=== PATIENT | male | born 1965 | race Caucasian/White ===

== ENCOUNTER 2017-10-22 12:02 | Emergency (ER) | payer OTHER ==
[2017-10-22] MEDS ORDERED: Aspirin 81 MG Tab.Chew PO ONE (12:10)
--- NOTE | 2017-10-22 12:36 | EDM.PDOC ---
ED HPI GENERAL MEDICAL PROBLEM - General Stated Complaint: FROM CLINIC, CHEST PAIN Time Seen by Provider: 10/22/17 12:20 Source of Information: Reports: Patient History Limitations: Reports: No Limitations - History of Present Illness INITIAL COMMENTS - FREE TEXT/NARRATIVE: This 52 yo male patient was sent to the ED by Easton Kurtz ([facility]) due to a 1 hour history of chest pain this morning, a fever of unknown origin, an elevated troponin level (0.08 with their upper limit of normal being 0.07) and a fib on the monitor (change from previous EKG). The patient reports he has been experiencing intermittent episodes of fevers and headaches since Wednesday of this week. While at the clinic, the patient had an EKG, CBC, CMP, Troponin, Influenza (-), and Monospot (-). The patient reports that he already has a defibrillator/pacemaker in place with a history of paroxysmal a. fib. The patient reports that he normally sees Dr. Momin with another appointment scheduled for November 02. The patient reports that he had chest pain this morning that lasted for about 1 hour prior to coming to the clinic. The patient denies any chest pain at the time of examination. The patient reports that he has a headache and a sore throat. Onset: Today (chest pain), Gradual (headaches, intermittent fevers) Location: Reports: Head, Chest Quality: Reports: Other Severity: Moderate Improves with: Reports: None Worsens with: Reports: None Associated Symptoms: Reports: Chest Pain, Fever/Chills, Headaches Headache Pain Score (Numeric/FACES): 9 - Related Data Allergies Allergy/AdvReac Type Severity Reaction Status Date / Time No Known Allergies Allergy Verified 08/14/13 19:52 Home Meds: Home Meds Furosemide [Lasix] 60 mg PO DAILY 08/14/13 [History] Losartan [Cozaar] 25 mg PO DAILY 08/14/13 [History] Metoprolol Succinate 50 mg PO 08/14/13 [History] Nitroglycerin [Nitrostat] 0.4 mg SL PRN 08/14/13 [History] Potassium Chloride [Potassium Chloride Solution] 20 meq PO DAILY 08/14/13 [ History] Albuterol [Proventil HFA] 10/22/17 [History] Omeprazole Magnesium [Prilosec Otc] 20 mg PO DAILY 10/22/17 [History] Warfarin [Coumadin] 5 mg PO DAILY 10/22/17 [History] Social & Family History - Tobacco Use Years of Tobacco use: 13 Used Tobacco, but Quit: Yes Month/Year Tobacco Last Used: september Second Hand Smoke Exposure: No - Alcohol Use Days Per Week of Alcohol Use: 0 Number of Drinks Per Day: 0 Total Drinks Per Week: 0 - Recreational Drug Use Recreational Drug Use: No ED ROS GENERAL - Review of Systems Review Of Systems: ROS reveals no pertinent complaints other than HPI. ED EXAM, GENERAL - Physical Exam Exam: See Below Exam Limited By: No Limitations General Appearance: Alert, WD/WN, Mild Distress Eye Exam: Bilateral Eye: EOMI, Normal Inspection, PERRL Ears: Normal External Exam, Normal Canal, Hearing Grossly Normal, Normal TMs Nose: Normal Inspection, Normal Mucosa, No Blood Throat/Mouth: Normal Inspection, Normal Lips, Normal Teeth, Normal Gums, Normal Oropharynx, Normal Voice, No Airway Compromise Head: Atraumatic, Normocephalic Neck: Normal Inspection, Supple, Non-Tender, Full Range of Motion Respiratory/Chest: No Respiratory Distress, Lungs Clear, Normal Breath Sounds, No Accessory Muscle Use, Chest Non-Tender Cardiovascular: Tachycardia, Irregularly Irregular GI/Abdominal: Normal Bowel Sounds, Soft, Non-Tender, No Organomegaly, No Distention, No Abnormal Bruit, No Mass (Male) Exam: Deferred Rectal (Males) Exam: Deferred Back Exam: Normal Inspection, Full Range of Motion, NT Extremities: Normal Range of Motion, Non-Tender, Normal Capillary Refill, Pedal Edema (mild bilateral (2+)) Neurological: Alert, Oriented, CN II-XII Intact, Normal Cognition, Normal Gait, Normal Reflexes, No Motor/Sensory Deficits Psychiatric: Normal Affect, Normal Mood Skin Exam: Warm, Dry, Intact, Normal Color, No Rash Lymphatic: No Adenopathy EKG INTERPRETATION EKG Date: 10/22/17 Time: 12:09 Rhythm: A-Fib [place]: Normal P-Wave: Present QRS: Normal ST-T: Normal QT: Normal Comparison: Change From Previous EKG Course - Vital Signs Last Recorded V/S: Last Vital Signs Temp 37.8 C 10/22/17 12:26 Pulse 113 H 10/22/17 12:26 Resp 16 10/22/17 12:26 BP 110/72 10/22/17 12:26 Pulse Ox 94 L 10/22/17 12:26 - Orders/Labs/Meds Orders: Active Orders 24 hr Category Date Time Status EKG Documentation Completion [RC] URGENT Care 10/22/17 12:10 Ordered Chest 1V Frontal [CR] Urgent Exams 10/22/17 12:11 Ordered CULTURE STREP A CONFIRMATION [] Stat Lab 10/22/17 12:17 Results STREP SCRN A RAPID W CULT CONF [] Stat Lab 10/22/17 12:23 Ordered Heparin Sodium/0.45% NaCl [Heparin 25,000 Units in 1/2 Med 10/22/17 13:45 Ordered NS 500 ML] 25,000 units in 500 ml IV ASDIRECTED Medication Orders Heparin Sodium/Sodium Chloride (Heparin 25,000 Units In 1/2 Ns 500 Ml) 25,000 units in 500 mls @ 24.385 mls/hr IV ASDIRECTED [facility] Labs: Laboratory Tests 10/22/17 10/22/17 Range/Units 12:18 12:18 PT 13.7 H D (9.0-12.0) SEC INR 1.4 H (0.9-1.2) Troponin I 0.07 H* (0.00-0.02) ng/ml B-Natriuretic Peptide 252 H (0-100) pg/ml Meds: Medications Generic Name Dose Route Start Last Admin Trade Name Freq PRN Reason Stop Dose Admin Heparin Sodium/Sodium Chloride 25,000 units in 500 mls @ 24.385 mls/hr 13:45 Heparin 25,000 Units In 1/2 Ns 500 Ml IV ASDIRECTED SUNITA 12 UNITS/KG/HR Discontinued Medications Generic Name Dose Route Start Last Admin Trade Name Freq PRN Reason Stop Dose Admin Aspirin 324 mg 10/22/17 12:10 10/22/17 12:31 Aspirin PO 10/22/17 12:11 324 mg ONETIME ONE Administration Heparin Sodium (Porcine) 4,000 units 10/22/17 13:32 Heparin Sodium IVPUSH 10/22/17 13:33 .BOLUS ONE Departure - Departure Time of Disposition: 13:37 Disposition: DC/Tfer to Acute Hospital 02 Reason for Transfer *Q: Other Condition: Fair Clinical Impression: NSTEMI (non-ST elevated myocardial infarction) Forms: Interfacility Transfer EMTALA Care Plan Goals: Discussed the patient's history, examination, lab, EKG and x-ray results with Dr. Prince (Hospitalist with [facility] in [place]). Dr. Prince accepted the patient for continued evaluation and management at [facility] in [place]. The patient will be transported by [facility]. - My Orders Last 24 Hours: My Active Orders 10/22/17 12:10 EKG Documentation Completion [RC] URGENT 10/22/17 12:11 Chest 1V Frontal [CR] Urgent 10/22/17 12:17 CULTURE STREP A CONFIRMATION [RM] Stat 10/22/17 12:23 STREP SCRN A RAPID W CULT CONF [RM] Stat 10/22/17 13:45 Heparin Sodium/0.45% NaCl [Heparin 25,000 Units in 1/2 NS 500 ML] 25,000 units in 500 ml IV ASDIRECTED - Assessment/Plan Last 24 Hours: My Active Orders 10/22/17 12:10 EKG Documentation Completion [RC] URGENT 10/22/17 12:11 Chest 1V Frontal [CR] Urgent 10/22/17 12:17 CULTURE STREP A CONFIRMATION [RM] Stat 10/22/17 12:23 STREP SCRN A RAPID W CULT CONF [RM] Stat 10/22/17 13:45 Heparin Sodium/0.45% NaCl [Heparin 25,000 Units in 1/2 NS 500 ML] 25,000 units in 500 ml IV ASDIRECTED
[2017-10-22] MEDS ORDERED: Heparin Sodium 5,000 Units/ML Vial IVPUSH ONE (13:32)
[2017-10-22] MEDS ORDERED: Heparin Sodium/0.45% NaCl 25,000 UNITS/500 ML BAG IV SCH (13:45)
--- NOTE | 2017-10-25 10:02 | EKG ---
10/22/2017- JOSE RAMON SORIANO - EKG, per my reading, shows atrial flutter at a rate of one teens. [facility] /[id number]
== END 2017-10-22 15:00 ==
LOC: DL.ED 12:02
DX: I21.4 Non-ST elevation (NSTEMI) myocardial infarction (principal); Z79.899 Other long term (current) drug therapy; Z87.891 Personal history of nicotine dependence
CPT/HCPCS: 36415; 71045; 83880; 84484; 85610; 87081; 87430; 93005; 96365; 96376; 99285; A9270; J1644

== ENCOUNTER 2018-03-05 16:20 | Emergency (ER) | payer OTHER ==
--- NOTE | 2018-03-05 17:50 | EDM.PDOC ---
Scribed by Deepti Linder 03/05/18 1722 for Farhad Shnaks MD ED HPI GENERAL MEDICAL PROBLEM - General Chief Complaint: Cardiovascular Problem Stated Complaint: HEART ? [id number] Time Seen by Provider: 03/05/18 16:23 Source of Information: Reports: Patient, RN, RN Notes Reviewed History Limitations: Reports: No Limitations - History of Present Illness INITIAL COMMENTS - FREE TEXT/NARRATIVE: Pt c/o pacemaker began "beeping" last evening at approx. 1900HRS. Pt denies palpitations, pain, syncope, or shortness of breath. Pt states he feels completely well and normal. Onset: Sudden Duration: Recurring Location: Reports: Chest Quality: Reports: Other (denies pain) Improves with: Reports: None Worsens with: Reports: None Associated Symptoms: Reports: No Other Symptoms - Related Data Allergies Allergy/AdvReac Type Severity Reaction Status Date / Time No Known Allergies Allergy Verified 03/05/18 17:07 Home Meds: Home Meds Furosemide [Lasix] 60 mg PO DAILY 08/14/13 [History] Losartan [Cozaar] 25 mg PO DAILY 08/14/13 [History] Metoprolol Succinate 50 mg PO DAILY 08/14/13 [History] Nitroglycerin [Nitrostat] 0.4 mg SL PRN 08/14/13 [History] Potassium Chloride [Potassium Chloride Solution] 20 meq PO DAILY 08/14/13 [ History] Albuterol [Proventil HFA] 10/22/17 [History] Omeprazole Magnesium [Prilosec Otc] 20 mg PO DAILY 10/22/17 [History] Warfarin [Coumadin] 7.5 mg PO DAILY 10/22/17 [History] Warfarin Sodium [Jantoven] 03/05/18 [History] Past Medical History HEENT History: Reports: Impaired Vision Cardiovascular History: Reports: Automatic Implantable Cardioverter Defibrillators, CAD, Cardiomyopathy, High Cholesterol, Hypertension, Pacemaker Respiratory History: Reports: Other (See Below) Other Respiratory History: pulmonary nodules Gastrointestinal History: Reports: GERD - Past Surgical History Cardiovascular Surgical History: Reports: AICD, Pacer GI Surgical History: Reports: Bariatric Procedure Musculoskeletal Surgical History: Reports: Arthroscopic Knee Social & Family History - Family History Family Medical History: Noncontributory - Caffeine Use Caffeine Use: Reports: Soda - Living Situation & Occupation Living situation: Reports: with Family Occupation: Employed ED ROS GENERAL - Review of Systems Review Of Systems: ROS reveals no pertinent complaints other than HPI. ED EXAM, GENERAL - Physical Exam Exam: See Below Exam Limited By: No Limitations General Appearance: Alert, WD/WN, No Apparent Distress, Obese Throat/Mouth: Normal Inspection, Normal Voice, No Airway Compromise Head: Atraumatic, Normocephalic Neck: Normal Inspection Respiratory/Chest: No Respiratory Distress, Lungs Clear, Normal Breath Sounds, No Accessory Muscle Use, Chest Non-Tender Cardiovascular: Regular Rate, Rhythm, No Edema GI/Abdominal: Soft, Non-Tender Back Exam: Normal Inspection Extremities: Normal Inspection, Non-Tender, No Pedal Edema Neurological: Alert, Oriented, No Motor/Sensory Deficits Psychiatric: Normal Mood Skin Exam: Warm, Dry, Intact, Normal Color, No Rash EKG INTERPRETATION EKG Date: 03/05/18 Time: 16:27 Rhythm: Other (paced.) Rate (Beats/Min): 68 EKG Interpretation Comments: Paced: No further interpretation. Course - Vital Signs Last Recorded V/S: Last Vital Signs Temp 36.8 C 03/05/18 16:36 Pulse 71 03/05/18 16:36 Resp 20 03/05/18 16:36 BP 127/72 03/05/18 16:36 Pulse Ox 96 03/05/18 16:36 - Orders/Labs/Meds Orders: Active Orders 24 hr Category Date Time Status EKG 12 Lead [EKG Documentation Completion] [RC] STAT Care 03/05/18 17:27 Active - Re-Assessments/Exams Free Text/Narrative Re-Assessment/Exam: 03/05/18 17:48 [employer] pacer interogated with phone call and faxed report from [employer] [facility] that the pace is functioning normally, and is beeping due to recognition of a T wave. Pt may be d/c'd home and f/u with cardiology on Mar.08. Departure - Departure Time of Disposition: 17:15 Disposition: Home, Self-Care 01 Condition: Good, Undetermined Clinical Impression: Normally functioning cardiac pacemaker present Disorder of cardiac pacemaker system Qualifiers: Encounter type: initial encounter Qualified Code(s): T82.9XXA - Unspecified complication of cardiac and vascular prosthetic device, implant and graft, initial encounter Instructions: Pacemaker Implantation, Adult, Care After Forms: ED Department Discharge Additional Instructions: Follow up with your cream hauler on Mar.08. Return to ER if any further concerns. - My Orders Last 24 Hours: My Active Orders 03/05/18 17:27 EKG 12 Lead [EKG Documentation Completion] [RC] STAT - Assessment/Plan Last 24 Hours: My Active Orders 03/05/18 17:27 EKG 12 Lead [EKG Documentation Completion] [RC] STAT I have read and agree with the documentation that has been completed regarding this visit. By signing this record, I attest that the documentation was completed in my physical presence and is an accurate record of the encounter.
== END 2018-03-05 17:51 | disposition home or self-care (01) ==
LOC: DL.ED 16:20
DX: T82.9XXA Unspecified complication of cardiac and vascular prosthetic device, implant and graft, initial encounter (principal); I10 Essential (primary) hypertension; Z79.899 Other long term (current) drug therapy; Z79.01 Long term (current) use of anticoagulants
CPT/HCPCS: 93005; 99284

== ENCOUNTER 2018-03-21 12:45 | Inpatient (IN) | payer OTHER ==
[2018-03-21] MEDS ORDERED: Ondansetron 4 MG/2 ML SDV IVPUSH PRN (13:13)
--- NOTE | 2018-03-21 13:41 | PCM.HP ---
H&P History of Present Illness - General Date of Service: 03/21/18 Admit Problem/Dx: Admission Diagnosis/Problem Admission Diagnosis/Problem Pancreatitis Source of Information: Patient History Limitations: Reports: No Limitations - History of Present Illness Initial Comments - Free Text/Narative: Qamar Lobato is a 52 y/o M with PMH of nonischemic cardiomyopathy, CAD, AFib w AICD/PCM and HTN. Patient is a transfer from [facility] because of pancreatitis. patient reports he has been having abdominal pain, associated with diarrhea, subjective fever and chills for the past 6 days. He notes nausea with dry heave. abdominal pain is defused but more epigastric, non-radiating, about 5/10 in intensity. He reports stool was loose and had about 4 bowel movement yesterday. He however said diarrhea is improving and that stool is now forming. He was seen in clinic today and labs revealed; Lipase elevated at 2047 , amylase 150, K 3.2, bottom saw operator 1.7. Hopsitalist service was consulted for hospitalization and further management. Patient at this time has no nausea, vomiting, fever, chills. No chest ain, SOB, palpation. No melena, hematochezia, hematemesis. Patient says he drinks alcohol occasionally and his last drink was 7 days ago. Onset of Symptoms: Reports: Gradual Duration of Symptoms: Reports: Day(s): Location: Reports: Abdomen Quality: Reports: Sharp Severity: Moderate Improves with: Reports: None Worsens with: Reports: Eating Associated Symptoms: Reports: Fever/Chills, Nausea/Vomiting, Weakness - Related Data Allergies/Adverse Reactions: Allergies Allergy/AdvReac Type Severity Reaction Status Date / Time No Known Allergies Allergy Verified 03/05/18 17:07 Home Medications: Home Meds Furosemide [Lasix] 60 mg PO DAILY 08/14/13 [History] Losartan [Cozaar] 25 mg PO DAILY 08/14/13 [History] Metoprolol Succinate 50 mg PO DAILY 08/14/13 [History] Nitroglycerin [Nitrostat] 0.4 mg SL PRN 08/14/13 [History] Albuterol [Proventil HFA] 10/22/17 [History] Omeprazole Magnesium [Prilosec Otc] 20 mg PO DAILY 10/22/17 [History] Warfarin [Coumadin] 7.5 mg PO DAILY 10/22/17 [History] Acetaminophen 1,000 mg PO Q6H PRN 03/21/18 [History] Potassium Chloride 20 meq PO DAILY 03/21/18 [History] atorvaSTATin [Lipitor] 20 mg PO DAILY 03/21/18 [History] Past Medical History HEENT History: Reports: Impaired Vision Cardiovascular History: Reports: Automatic Implantable Cardioverter Defibrillators, CAD, Cardiomyopathy, High Cholesterol, Hypertension, Pacemaker Respiratory History: Reports: Other (See Below) Other Respiratory History: pulmonary nodules Gastrointestinal History: Reports: GERD - Past Surgical History Cardiovascular Surgical History: Reports: AICD, Pacer GI Surgical History: Reports: Bariatric Procedure Musculoskeletal Surgical History: Reports: Arthroscopic Knee Social & Family History - Family History Family Medical History: Noncontributory - Caffeine Use Caffeine Use: Reports: Soda - Living Situation & Occupation Living situation: Reports: with Family Occupation: Employed H&P Review of Systems - Review of Systems: Review Of Systems: See Below General: Reports: No Symptoms, Chills, Fatigue, Decreased Appetite HEENT: Reports: No Symptoms Pulmonary: Reports: No Symptoms Cardiovascular: Reports: No Symptoms Gastrointestinal: Reports: Diarrhea, Nausea Genitourinary: Reports: No Symptoms Musculoskeletal: Reports: No Symptoms Skin: Reports: No Symptoms Psychiatric: Reports: No Symptoms Neurological: Reports: No Symptoms Hematologic/Lymphatic: Reports: No Symptoms Immunologic: Reports: No Symptoms Exam - Exam Exam: See Below - Exam Quality Assessment: DVT Prophylaxis General: Alert HEENT: PERRLA, Hearing Intact, Mucosa Moist & [place], Nares Patent, Normal Nasal Septum, Posterior Pharynx Clear, Conjunctiva Clear, EOMI, EACs Clear, TMs Clear Neck: Supple, Trachea Midline, 2 Lungs: Clear to Auscultation, Normal Respiratory Effort Cardiovascular: Regular Rate, Regular Rhythm GI/Abdominal Exam: Normal Bowel Sounds, Soft, Non-Tender, No Organomegaly, No Distention, No Abnormal Bruit, No Mass, Pelvis Stable (Male) Exam: Deferred Rectal (Males) Exam: Deferred Back Exam: Normal Inspection, Full Range of Motion, NT Extremities: Normal Inspection, Normal Range of Motion, Non-Tender, No Pedal Edema, Normal Capillary Refill Skin: Warm, Dry, Intact Neurological: Cranial Nerves Intact, Reflexes Equal Bilateral Neuro Extensive - Mental Status: Alert, Oriented x3, Normal Mood/Affect, Normal Cognition Neuro Extensive - Motor, Sensory, Reflexes: CN II-XII Intact, Normal Gait, Normal Reflexes Psychiatric: Alert, Normal Affect, Normal Mood - Problem List (1) Acute pancreatitis SNOMED Code(s): 506975752 ICD Code: K85.90 - ACUTE PANCREATITIS WITHOUT NECROSIS OR INFECTION, UNSP Status: Acute Current Visit: Yes (2) Hypokalemia SNOMED Code(s): 50479077 ICD Code: E87.6 - HYPOKALEMIA Status: Acute Current Visit: Yes (3) LOBO (acute kidney injury) SNOMED Code(s): 69718525 ICD Code: N17.9 - ACUTE KIDNEY FAILURE, UNSPECIFIED Status: Acute Current Visit: Yes (4) Diarrhea SNOMED Code(s): 92755046 ICD Code: R19.7 - DIARRHEA, UNSPECIFIED Status: Acute Current Visit: Yes Problem List Initiated/Reviewed/Updated: Yes Orders Last 24hrs: Active Orders 24 hr Category Date Time Status Patient Status [ADT] Routine ADT 03/21/18 13:13 Active Ambulate [RC] ASDIRECTED Care 03/21/18 13:13 Active Intake and Output [RC] QSHIFT Care 03/21/18 13:14 Active Oxygen Therapy [RC] PRN Care 03/21/18 13:13 Active VTE/DVT Education [RC] PER UNIT ROUTINE Care 03/21/18 13:13 Active Vital Signs [RC] Q4H Care 03/21/18 13:13 Active Heart Healthy Diet [DIET] Diet 03/21/18 Dinner Active BASIC METABOLIC PANEL,BMP [CHEM] DAILY Lab 03/22/18 07:00 Ordered CBC W/O DIFF,HEMOGRAM [HEME] DAILY Lab 03/22/18 07:00 Ordered MAGNESIUM [CHEM] Stat Lab 03/21/18 13:13 Ordered PHOSPHORUS [CHEM] Stat Lab 03/21/18 13:13 Ordered Acetaminophen [Tylenol] Med 03/21/18 13:13 Ordered 650 mg PO Q4H PRN Heparin Sodium Med 03/21/18 18:00 Ordered 5,000 units SUBCUT Q12H Ondansetron [Zofran] Med 03/21/18 13:13 Ordered 4 mg IVPUSH Q6H PRN Sodium Chloride 0.9% [Normal Saline] 1,000 ml Med 03/21/18 13:15 Ordered IV ASDIRECTED Resuscitation Status Routine Resus Stat 03/21/18 13:13 Ordered Medication Orders Acetaminophen (Tylenol) 650 mg PO Q4H PRN PRN Reason: Pain (Mild 1-3)/fever Heparin Sodium (Porcine) (Heparin Sodium) 5,000 units SUBCUT Q12H SUNITA Sodium Chloride (Normal Saline) 1,000 mls @ 125 mls/hr IV ASDIRECTED SUNITA Ondansetron HCl (Zofran) 4 mg IVPUSH Q6H PRN PRN Reason: Nausea/Vomiting Assessment/Plan Comment:: Acute pancreatitis admit to inpatient status IVF NPO. Stat patient on clear liquid diet and advance as tolerated Tylenol for pain control Lipase in the AM LOBO likely pre-renal azotemia due to diarrhea IVF BMP q8h avoid all nephrotoxics Hypokalemia will replete IV Diarrhea Resolving as per patient monitor closely Nonischemic cardiomyopathy stable continue home medications CAD stable continue home meds AFib w AICD/PCM stable HTN Continue home medication monitor BP closely Full code
[2018-03-21] MEDS ORDERED: Potassium Chloride 20 MEQ in Premix Bag 1 BAG IV ONE (13:49)
[2018-03-21] MEDS: Sodium Chloride 0.9% 1,000 ML IV SCH ×2 (13:51→21:48)
[2018-03-21] MEDS ORDERED: Nitroglycerin 0.4 MG Tab.SL SL PRN (13:55)
[2018-03-21] MEDS ORDERED: Albuterol 6.7 GM Inhaler INH PRN (13:55)
[2018-03-21 14:09] LABS: ANION GAP 16.1
[2018-03-21] MEDS ORDERED: Heparin Sodium 5,000 Units/ML Vial SUBCUT SCH (21:00)
[2018-03-22] MEDS: Omeprazole 20 MG Cap.CR PO SCH (05:53)
[2018-03-22] MEDS: Sodium Chloride 0.9% 1,000 ML IV SCH ×3 (05:53→22:36)
[2018-03-22 06:54] LABS: ANION GAP 10.9; CHLORIDE,CL 102 mmol/L (101-111); SODIUM,NA 132 mmol/L (135-145)
[2018-03-22] MEDS: Acetaminophen 325 MG Tab PO PRN ×2 (07:50→22:33)
[2018-03-22] MEDS: Metoprolol Succinate 50 MG Tab.ER PO SCH (07:59)
[2018-03-22] MEDS: Potassium Chloride 10 MEQ Tab.ER PO SCH (07:59)
[2018-03-22] MEDS: atorvaSTATin 20 MG Tab PO SCH (08:00)
[2018-03-22] MEDS: Potassium Chloride 20 MEQ in Premix Bag 1 BAG IV SCH ×2 (10:49→13:28)
--- NOTE | 2018-03-22 11:43 | PCM.PN ---
- General Info Date of Service: 03/22/18 Admission Dx/Problem (Free Text): Admission Diagnosis/Problem Admission Diagnosis/Problem Pancreatitis Subjective Update: Qamar Lobato is a 52 y/o M with PMH of nonischemic cardiomyopathy, CAD, AFib w AICD/PCM and HTN. Patient was transfer from [facility] because of pancreatitis. Patient presented with abdominal pain and was found to have elevated lipase at >2000. He was admitted and started on IVF. Patient was seen and examined this morning. He has no acute complaint. Abdominal pain has improved. He has no N/V. He is tolerating CLD. He denies fever/chills. Lipase this morning has trended down to <300. He still note diarrhea. Has 3 loose bowel movement yesterday. Stool is watery, greenish, mucoid, no blood. Functional Status: Reports: Pain Controlled - Review of Systems General: Reports: No Symptoms HEENT: Reports: No Symptoms Pulmonary: Reports: No Symptoms Cardiovascular: Reports: No Symptoms Gastrointestinal: Reports: No Symptoms Genitourinary: Reports: No Symptoms Musculoskeletal: Reports: No Symptoms Skin: Reports: No Symptoms Neurological: Reports: No Symptoms Psychiatric: Reports: No Symptoms - Patient Data Vitals - Most Recent: Last Vital Signs Temp 97.5 F 03/22/18 11:12 Pulse 54 L 03/22/18 11:12 Resp 20 03/22/18 11:12 BP 107/67 03/22/18 11:12 Pulse Ox 97 03/22/18 11:12 Weight - Most Recent: 210 lb 12.8 oz I&O - Last 24 Hours: Intake & Output 03/21/18 03/22/18 03/22/18 22:59 06:59 14:59 Intake Total 3148 1252 Output Total 300 200 Balance 2848 1052 Lab Results Last 24 Hours: Laboratory Results - last 24 hr 03/21/18 03/21/18 03/21/18 Range/Units 13:31 13:31 13:31 WBC 6.3 (5.0-10.0) 10^3/uL RBC 4.70 (4.6-6.2) 10^6/uL Hgb 13.2 L (14.0-18.0) g/dL Hct 38.7 L (40.0-54.0) % MCV 82.3 (80-100) fL MCH 28.1 (27.0-34.0) pg MCHC 34.1 (33.0-35.0) g/dL Plt Count 200 D (150-450) 10^3/uL Sodium 134 L (135-145) mmol/L Potassium 3.1 L (3.6-5.0) mmol/L Chloride 99 L (101-111) mmol/L Carbon Dioxide 22.0 (21.0-31.0) mmol/L Anion Gap 16.1 BUN 20 H (7-18) mg/dL Creatinine 1.6 H (0.6-1.3) mg/dL Est Cr Clr Drug Dosing 52.25 mL/min Estimated GFR (MDRD) 46 Glucose 102 (74-105) mg/dL Calcium 8.8 (8.4-10.2) mg/dl Phosphorus 4.3 (2.5-4.6) mg/dL Magnesium 1.9 (1.8-2.5) mg/dL Lipase (22-51) U/L 03/22/18 03/22/18 03/22/18 Range/Units 06:10 06:10 06:10 WBC 5.7 (5.0-10.0) 10^3/uL RBC 4.00 L (4.6-6.2) 10^6/uL Hgb 11.2 L D (14.0-18.0) g/dL Hct 33.6 L (40.0-54.0) % MCV 84.0 (80-100) fL MCH 28.0 (27.0-34.0) pg MCHC 33.3 (33.0-35.0) g/dL Plt Count 167 (150-450) 10^3/uL Sodium 132 L (135-145) mmol/L Potassium 2.9 L (3.6-5.0) mmol/L Chloride 102 (101-111) mmol/L Carbon Dioxide 22.0 (21.0-31.0) mmol/L Anion Gap 10.9 BUN 13 (7-18) mg/dL Creatinine 0.9 (0.6-1.3) mg/dL Est Cr Clr Drug Dosing 92.89 mL/min Estimated GFR (MDRD) > 60 Glucose 86 (74-105) mg/dL Calcium 7.9 L (8.4-10.2) mg/dl Phosphorus (2.5-4.6) mg/dL Magnesium (1.8-2.5) mg/dL Lipase 213 H (22-51) U/L Med Orders - Current: Current Medications Acetaminophen (Tylenol) 650 mg PO Q4H PRN PRN Reason: Pain (Mild 1-3)/fever Last Admin: 03/22/18 07:50 Dose: 650 mg Albuterol (Proventil Hfa) 0 gm INH Q6H PRN PRN Reason: Wheezing Atorvastatin Calcium (Lipitor) 20 mg PO DAILY [facility] Last Admin: 03/22/18 08:00 Dose: 20 mg Sodium Chloride (Normal Saline) 1,000 mls @ 125 mls/hr IV ASDIRECTED [facility] Last Admin: 03/22/18 05:53 Dose: 125 mls/hr Potassium Chloride 20 meq/ (Premix) 100 mls @ 50 mls/hr IV Q2H [facility] Stop: 03/22/18 13:59 Last Admin: 03/22/18 10:49 Dose: 50 mls/hr Metoprolol Succinate (Toprol Xl) 50 mg PO DAILY [facility] Last Admin: 03/22/18 07:59 Dose: 50 mg Nitroglycerin (Nitrostat) 0.4 mg SL ASDIRECTED PRN PRN Reason: Chest Pain Omeprazole (Omeprazole) 20 mg PO ACBRK [facility] Last Admin: 03/22/18 05:53 Dose: 20 mg Ondansetron HCl (Zofran) 4 mg IVPUSH Q6H PRN PRN Reason: Nausea/Vomiting Potassium Chloride (Klor-Con 10) 20 meq PO DAILY [facility] Last Admin: 03/22/18 07:59 Dose: 20 meq Warfarin Sodium (Pharmacy To Dose - Warfarin) 1 dose .XX ASDIRECTED [facility] Warfarin Sodium (Coumadin) 7.5 mg PO ONETIME ONE Stop: 03/22/18 14:01 Discontinued Medications Heparin Sodium (Porcine) (Heparin Sodium) 5,000 units SUBCUT Q12HR [facility] Potassium Chloride 20 meq/ (Premix) 100 mls @ 50 mls/hr IV ONETIME ONE Stop: 03/21/18 15:48 Last Admin: 03/21/18 14:20 Dose: 50 mls/hr Warfarin Sodium (Coumadin) 7.5 mg PO DAILY@1400 [facility] - Exam Quality Assessment: DVT Prophylaxis General: Alert, Oriented HEENT: Pupils Equal, Pupils Reactive, EOMI, Mucous Membr. Moist/[place] Neck: Supple Lungs: Clear to Auscultation, Normal Respiratory Effort Cardiovascular: Regular Rate, Regular Rhythm GI/Abdominal Exam: Normal Bowel Sounds, Soft, Non-Tender, No Organomegaly, No Distention, No Abnormal Bruit, No Mass, Pelvis Stable (Male) Exam: No Hernia, Normal Inspection, Normal Prostate, Circumcised Back Exam: Normal Inspection, Full Range of Motion Extremities: Normal Inspection, Normal Range of Motion, Non-Tender, No Pedal Edema, Normal Capillary Refill Skin: Warm, Dry, Intact Wound/Incisions: Healing Well Neurological: No New Focal Deficit Psy/Mental Status: Alert, Normal Affect, Normal Mood - Problem List & Annotations (1) Acute pancreatitis SNOMED Code(s): 704107348 Code(s): K85.90 - ACUTE PANCREATITIS WITHOUT NECROSIS OR INFECTION, UNSP Status: Acute Current Visit: Yes (2) Hypokalemia SNOMED Code(s): 98551456 Code(s): E87.6 - HYPOKALEMIA Status: Acute Current Visit: Yes (3) LOBO (acute kidney injury) SNOMED Code(s): 66458632 Code(s): N17.9 - ACUTE KIDNEY FAILURE, UNSPECIFIED Status: Acute Current Visit: Yes (4) Diarrhea SNOMED Code(s): 83775092 Code(s): R19.7 - DIARRHEA, UNSPECIFIED Status: Acute Current Visit: Yes (5) Hyponatremia SNOMED Code(s): 16721103 Code(s): E87.1 - HYPO-OSMOLALITY AND HYPONATREMIA Status: Acute Current Visit: Yes - Problem List Review Problem List Initiated/Reviewed/Updated: Yes - My Orders Last 24 Hours: My Active Orders 03/21/18 13:13 Patient Status [ADT] Routine Ambulate [RC] ASDIRECTED Oxygen Therapy [RC] .PRN VTE/DVT Education [RC] 08,20 Vital Signs [RC] 00,04,08,12,16,20 Acetaminophen [Tylenol] 650 mg PO Q4H PRN Ondansetron [Zofran] 4 mg IVPUSH Q6H PRN Resuscitation Status Routine 03/21/18 13:14 Intake and Output [RC] QSHIFT 03/21/18 13:15 Sodium Chloride 0.9% [Normal Saline] 1,000 ml IV ASDIRECTED 03/21/18 13:55 Albuterol [Proventil HFA] 0 gm INH Q6H PRN Nitroglycerin [Nitrostat] 0.4 mg SL ASDIRECTED PRN 03/21/18 16:15 Warfarin Pharmacy to Dose [Pharmacy to Dose - Warfarin] 1 dose .XX ASDIRECTED 03/21/18 Dinner Clear Liquid Diet [DIET] 03/22/18 06:00 Omeprazole 20 mg PO ACBRK 03/22/18 09:00 Metoprolol Succinate [Toprol XL] 50 mg PO DAILY Potassium Chloride [Klor-Con 10] 20 meq PO DAILY atorvaSTATin [Lipitor] 20 mg PO DAILY 03/22/18 09:41 Telemetry Monitoring [Cardiac Monitoring] [RC] . DIRECTED 03/22/18 10:00 Potassium Chloride [KCL 20 MEQ in Water 100 ML] 20 meq Premix Bag 1 bag IV Q2H 03/22/18 11:32 C DIFFICILE TOXIN BY PCR [MREF] Routine CULTURE STOOL [RM] Routine 03/22/18 14:00 Warfarin [Coumadin] 7.5 mg PO ONETIME ONE 03/23/18 07:00 INR,PT,PROTHROMBIN TIME [COAG] DAILY 03/24/18 07:00 INR,PT,PROTHROMBIN TIME [COAG] DAILY 03/25/18 07:00 INR,PT,PROTHROMBIN TIME [COAG] DAILY - Plan Plan:: Acute pancreatitis Improved Lipase trending down Tylenol for pain control Advance diet as tolerated LOBO likely pre-renal azotemia due to diarrhea Resolved Hypokalemia unresolved Continue to replete IV Diarrhea will send for stool study IV flagyl 500 mg tid Nonischemic cardiomyopathy stable continue home medications CAD stable continue home meds AFib w AICD/PCM stable HTN Continue home medication monitor BP closely Full code
[2018-03-22] MEDS ORDERED: Warfarin 2.5 MG Tab PO SCH (14:00)
[2018-03-22] MEDS ORDERED: Warfarin 2.5 MG Tab PO ONE (14:00)
[2018-03-23] MEDS: Potassium Chloride 20 MEQ in Premix Bag 1 BAG IV SCH ×2 (00:47→02:41)
[2018-03-23] MEDS: Omeprazole 20 MG Cap.CR PO SCH (06:02)
[2018-03-23 06:48] LABS: ANION GAP 9.7; CHLORIDE,CL 108 mmol/L (101-111); SODIUM,NA 137 mmol/L (135-145)
[2018-03-23] MEDS: atorvaSTATin 20 MG Tab PO SCH (08:19)
[2018-03-23] MEDS: Potassium Chloride 10 MEQ Tab.ER PO SCH (08:20)
[2018-03-23] MEDS: Metoprolol Succinate 50 MG Tab.ER PO SCH (08:20)
--- NOTE | 2018-03-23 12:33 | PCM.DCSUM1 ---
Discharge Summary - Hospital Course HPI Initial Comments: Qamar Lobato is a 52 y/o M with PMH of nonischemic cardiomyopathy, CAD, AFib w AICD/PCM and HTN. Patient was transfer from [facility] because of pancreatitis. Patient presented with abdominal pain and was found to have elevated lipase at >2000. He was admitted and managed with IVF and analgesics. His symptoms improved. Abdominal pain has resolved, lipase has trended down. He is being discharge home. He wile follow with PCP. Diagnosis: Stroke: No - Discharge Data Discharge Date: 03/23/18 Discharge Disposition: Home, Self-Care 01 Condition: Good - Discharge Diagnosis/Problem(s) (1) Acute pancreatitis SNOMED Code(s): 188541751 ICD Code: K85.90 - ACUTE PANCREATITIS WITHOUT NECROSIS OR INFECTION, UNSP Status: Acute Current Visit: Yes (2) Hypokalemia SNOMED Code(s): 90440673 ICD Code: E87.6 - HYPOKALEMIA Status: Acute Current Visit: Yes (3) LOBO (acute kidney injury) SNOMED Code(s): 43111217 ICD Code: N17.9 - ACUTE KIDNEY FAILURE, UNSPECIFIED Status: Acute Current Visit: Yes (4) Diarrhea SNOMED Code(s): 97050197 ICD Code: R19.7 - DIARRHEA, UNSPECIFIED Status: Acute Current Visit: Yes (5) Hyponatremia SNOMED Code(s): 20797356 ICD Code: E87.1 - HYPO-OSMOLALITY AND HYPONATREMIA Status: Acute Current Visit: Yes - Patient Summary/Data Recommended Follow-up Testing/Procedures: With PCP in 7 days - Patient Instructions Diet: Heart Healthy Diet Activity: As Tolerated Driving: May Drive Today Showering/Bathing: May Shower Notify Provider of: Fever, Increased Pain, Nausea and/or Vomiting - Discharge Plan *PRESCRIPTION DRUG MONITORING PROGRAM REVIEWED*: Not Applicable Home Medications: Home Meds Furosemide [Lasix] 60 mg PO DAILY 08/14/13 [History] Losartan [Cozaar] 25 mg PO DAILY 08/14/13 [History] Metoprolol Succinate 50 mg PO DAILY 08/14/13 [History] Nitroglycerin [Nitrostat] 0.4 mg SL ASDIRECTED PRN 08/14/13 [History] Albuterol [Proventil HFA] 2 puff INH Q6H PRN 10/22/17 [History] Omeprazole Magnesium [Prilosec Otc] 20 mg PO DAILY 10/22/17 [History] Warfarin [Coumadin] 7.5 mg PO DAILY 10/22/17 [History] Acetaminophen 1,000 mg PO Q6H PRN 03/21/18 [History] Potassium Chloride 20 meq PO DAILY 03/21/18 [History] atorvaSTATin [Lipitor] 20 mg PO DAILY 03/21/18 [History] Patient Handouts: Acute Pancreatitis, [id number] - Discharge Summary/Plan Comment DC Time >30 min.: Yes - General Info Admission Dx/Problem (Free Text: Admission Diagnosis/Problem Admission Diagnosis/Problem Pancreatitis Subjective Update: Qamar Lobato is a 52 y/o M with PMH of nonischemic cardiomyopathy, CAD, AFib w AICD/PCM and HTN. Patient was transfer from [facility] because of pancreatitis. Patient presented with abdominal pain and was found to have elevated lipase at >2000. He was admitted and managed with IVF and analgesics. His symptoms improved. Abdominal pain has resolved, lipase has trended down. He is being discharge home. He wile follow with PCP. Functional Status: Reports: Pain Controlled - Review of Systems General: Reports: No Symptoms HEENT: Reports: No Symptoms Pulmonary: Reports: No Symptoms Cardiovascular: Reports: No Symptoms Gastrointestinal: Reports: No Symptoms Genitourinary: Reports: No Symptoms Musculoskeletal: Reports: No Symptoms Skin: Reports: No Symptoms Neurological: Reports: No Symptoms Psychiatric: Reports: No Symptoms - Patient Data Vitals - Most Recent: Last Vital Signs Temp 98 F 03/23/18 10:47 Pulse 124 H 03/23/18 10:47 Resp 20 03/23/18 10:47 BP 123/84 03/23/18 10:47 Pulse Ox 98 03/23/18 10:47 Weight - Most Recent: 223 lb 12.8 oz I&O - Last 24 hours: Intake & Output 03/22/18 03/23/18 03/23/18 22:59 06:59 14:59 Intake Total 0556 352 9508 Output Total 300 600 Balance 307 441 8365 Lab Results - Last 24 hrs: Laboratory Results - last 24 hr 03/22/18 03/23/18 03/23/18 Range/Units 23:35 06:10 06:10 PT 15.9 H (9.0-12.0) SEC INR 1.6 H (0.9-1.2) Sodium 137 (135-145) mmol/L Potassium 3.2 L 3.7 (3.6-5.0) mmol/L Chloride 108 (101-111) mmol/L Carbon Dioxide 23.0 (21.0-31.0) mmol/L Anion Gap 9.7 BUN 6 L (7-18) mg/dL Creatinine 0.7 (0.6-1.3) mg/dL Est Cr Clr Drug Dosing 119.43 mL/min Estimated GFR (MDRD) > 60 Glucose 96 (74-105) mg/dL Calcium 7.8 L (8.4-10.2) mg/dl Lipase 295 H (22-51) U/L SYEDA Results - Last 24 hrs: Microbiology 03/22/18 11:00 Shiga Toxin I & II - Final Stool / Feces 03/22/18 11:00 Clostridium difficile (PCR) - Final Stool / Feces 03/22/18 11:00 Stool Culture - Preliminary Stool / Feces NORMAL ENTERIC KADEN 1 DAY Med Orders - Current: Current Medications Acetaminophen (Tylenol) 650 mg PO Q4H PRN PRN Reason: Pain (Mild 1-3)/fever Last Admin: 03/22/18 22:33 Dose: 650 mg Albuterol (Proventil Hfa) 0 gm INH Q6H PRN PRN Reason: Wheezing Atorvastatin Calcium (Lipitor) 20 mg PO DAILY [facility] Last Admin: 03/23/18 08:19 Dose: 20 mg Sodium Chloride (Normal Saline) 1,000 mls @ 125 mls/hr IV ASDIRECTED [facility] Last Admin: 03/22/18 22:36 Dose: 125 mls/hr Metoprolol Succinate (Toprol Xl) 50 mg PO DAILY [facility] Last Admin: 03/23/18 08:20 Dose: 50 mg Nitroglycerin (Nitrostat) 0.4 mg SL ASDIRECTED PRN PRN Reason: Chest Pain Omeprazole (Omeprazole) 20 mg PO ACBRK [facility] Last Admin: 03/23/18 06:02 Dose: 20 mg Ondansetron HCl (Zofran) 4 mg IVPUSH Q6H PRN PRN Reason: Nausea/Vomiting Potassium Chloride (Klor-Con 10) 20 meq PO DAILY [facility] Last Admin: 03/23/18 08:20 Dose: 20 meq Warfarin Sodium (Pharmacy To Dose - Warfarin) 1 dose .XX ASDIRECTED [facility] Warfarin Sodium (Coumadin) 8 mg PO ONETIME ONE Stop: 03/23/18 14:01 Discontinued Medications Heparin Sodium (Porcine) (Heparin Sodium) 5,000 units SUBCUT Q12HR [facility] Potassium Chloride 20 meq/ (Premix) 100 mls @ 50 mls/hr IV ONETIME ONE Stop: 03/21/18 15:48 Last Admin: 03/21/18 14:20 Dose: 50 mls/hr Potassium Chloride 20 meq/ (Premix) 100 mls @ 50 mls/hr IV Q2H [facility] Stop: 03/22/18 13:59 Last Infusion: 03/22/18 16:22 Dose: Infused Potassium Chloride 20 meq/ (Premix) 100 mls @ 50 mls/hr IV Q2H [facility] Stop: 03/23/18 04:29 Last Admin: 03/23/18 02:41 Dose: 50 mls/hr Warfarin Sodium (Coumadin) 7.5 mg PO DAILY@1400 [facility] Warfarin Sodium (Coumadin) 7.5 mg PO ONETIME ONE Stop: 03/22/18 14:01 Last Admin: 03/22/18 13:01 Dose: 7.5 mg - Exam General: Reports: Alert, Oriented HEENT: Reports: Pupils Equal, Pupils Reactive, EOMI, Mucous Membr. Moist/[place] Neck: Reports: Supple Lungs: Reports: Clear to Auscultation, Normal Respiratory Effort Cardiovascular: Reports: Regular Rate, Regular Rhythm GI/Abdominal Exam: Normal Bowel Sounds, Soft, Non-Tender, No Organomegaly, No Distention, No Abnormal Bruit, No Mass, Pelvis Stable (Male) Exam: No Hernia, Normal Inspection, Normal Prostate, Circumcised Rectal (Males) Exam: Normal Exam, Normal Rectal Tone, Prostate Normal Back Exam: Reports: Normal Inspection, Full Range of Motion Extremities: Normal Inspection, Normal Range of Motion, Non-Tender, No Pedal Edema, Normal Capillary Refill Skin: Reports: Warm, Dry, Intact Wound/Incisions: Reports: Healing Well Neurological: Reports: No New Focal Deficit Psy/Mental Status: Reports: Alert, Normal Affect, Normal Mood
[2018-03-23] MEDS ORDERED: Warfarin 2 MG Tab PO ONE (14:00)
== END 2018-03-23 12:40 | disposition home or self-care (01) | DRG 439 ==
LOC: DL.MS 12:54 → UNDOADMIN 12:54 → DL.MS 13:13
PROVIDERS: ADMIT Student in an Organized Health Care Education/Training Program; ATTEND Student in an Organized Health Care Education/Training Program
DX: K85.90 Acute pancreatitis without necrosis or infection, unspecified (principal); I42.9 Cardiomyopathy, unspecified; N17.9 Acute kidney failure, unspecified; E87.1 Hypo-osmolality and hyponatremia; E87.6 Hypokalemia; I25.10 Atherosclerotic heart disease of native coronary artery without angina pectoris; I48.91 Unspecified atrial fibrillation; I10 Essential (primary) hypertension; R19.7 Diarrhea, unspecified; K21.9 Gastro-esophageal reflux disease without esophagitis; H54.7 Unspecified visual loss; E78.00 Pure hypercholesterolemia, unspecified; Z95.810 Presence of automatic (implantable) cardiac defibrillator; Z79.899 Other long term (current) drug therapy; Z79.01 Long term (current) use of anticoagulants; Z98.84 Bariatric surgery status
CPT/HCPCS: 36415; 80048; 83690; 83735; 84100; 84132; 85027; 85610; 87045; 87046; 87493; 87899; A9270-GY; J3480; J7030

== ENCOUNTER 2018-08-29 07:03 | Emergency (ER) | payer OTHER ==
--- NOTE | 2018-08-29 07:36 | EDM.PDOC ---
ED HPI GENERAL MEDICAL PROBLEM - General Stated Complaint: CHECK PACEMAKER Time Seen by Provider: 08/29/18 07:20 Source of Information: Reports: Patient History Limitations: Reports: No Limitations - History of Present Illness INITIAL COMMENTS - FREE TEXT/NARRATIVE: This 53 yo male patient reports to the ED due to his pacemaker "beeping" 3 times yesterday (1400, 1800 and 2000) and again this morning. The patient reports he has had some "acid reflux like pains" yesterday and a little "something" this morning (patient did not describe his symptoms this morning as pain or discomfort). The patient reports he was in [place] to see Dr. Momin on Wednesday. The patient reports they increased some of his blood pressure medications (DC of Lasix, added Bumex, increased Metoprolol and increased Losartan) during that appointment. The patient reports a similar episode last year for which he ended up getting his pacemaker and wires. The patient reports he is feeling pretty well at the time of the assessment. Duration: Day(s):, Intermittent Location: Reports: Chest Quality: Reports: Other Severity: Mild Improves with: Reports: None Worsens with: Reports: None Associated Symptoms: Reports: Chest Pain - Related Data Allergies Allergy/AdvReac Type Severity Reaction Status Date / Time No Known Allergies Allergy Verified 03/05/18 17:07 Home Meds: Home Meds Losartan [Cozaar] 12.5 mg PO DAILY 08/14/13 [History] Metoprolol Succinate 100 mg PO DAILY 08/14/13 [History] Nitroglycerin [Nitrostat] 0.4 mg SL ASDIRECTED PRN 08/14/13 [History] Albuterol [Proventil HFA] 2 puff INH Q6H PRN 10/22/17 [History] Omeprazole Magnesium [Prilosec Otc] 20 mg PO DAILY 10/22/17 [History] Warfarin [Coumadin] 7.5 mg PO DAILY 10/22/17 [History] Acetaminophen 1,000 mg PO Q6H PRN 03/21/18 [History] Potassium Chloride 20 meq PO DAILY 03/21/18 [History] atorvaSTATin [Lipitor] 20 mg PO DAILY 03/21/18 [History] Allopurinol [Zyloprim] 300 mg PO DAILY 08/29/18 [History] Bumetanide [Bumex] 1.5 mg PO BID 08/29/18 [History] Past Medical History HEENT History: Reports: Impaired Vision Cardiovascular History: Reports: Automatic Implantable Cardioverter Defibrillators, CAD, Cardiomyopathy, High Cholesterol, Hypertension, Pacemaker Respiratory History: Reports: Other (See Below) Other Respiratory History: pulmonary nodules Gastrointestinal History: Reports: GERD Musculoskeletal History: Reports: Arthritis Endocrine/Metabolic History: Reports: Obesity/BMI 30+ - Past Surgical History Cardiovascular Surgical History: Reports: AICD, Pacer GI Surgical History: Reports: Bariatric Procedure Musculoskeletal Surgical History: Reports: Arthroscopic Knee Social & Family History - Family History Family Medical History: Noncontributory - Caffeine Use Caffeine Use: Reports: Soda - Living Situation & Occupation Living situation: Reports: with Family Occupation: Employed ED ROS GENERAL - Review of Systems Review Of Systems: ROS reveals no pertinent complaints other than HPI. ED EXAM, GENERAL - Physical Exam Exam: See Below Exam Limited By: No Limitations General Appearance: Alert, WD/WN, Mild Distress Eye Exam: Bilateral Eye: EOMI, Normal Inspection, PERRL Ears: Normal External Exam, Normal Canal, Hearing Grossly Normal, Normal TMs Nose: Normal Inspection, Normal Mucosa, No Blood Throat/Mouth: Normal Inspection, Normal Lips, Normal Teeth, Normal Gums, Normal Oropharynx, Normal Voice, No Airway Compromise Head: Atraumatic, Normocephalic Neck: Normal Inspection, Supple, Non-Tender, Full Range of Motion Respiratory/Chest: No Respiratory Distress, Lungs Clear, Normal Breath Sounds, No Accessory Muscle Use, Chest Non-Tender Cardiovascular: Normal Peripheral Pulses, No Edema, No Gallop, No JVD, No Murmur , No Rub, Extra Beats GI/Abdominal: Normal Bowel Sounds (Male) Exam: Deferred Rectal (Males) Exam: Deferred Back Exam: Normal Inspection, Full Range of Motion, NT Extremities: Normal Inspection, Normal Range of Motion, Non-Tender, Normal Capillary Refill, No Pedal Edema Neurological: Alert, Oriented, CN II-XII Intact, Normal Cognition, Normal Gait, Normal Reflexes, No Motor/Sensory Deficits Psychiatric: Normal Affect, Normal Mood Skin Exam: Warm, Dry, Intact, Normal Color, No Rash Lymphatic: No Adenopathy Course - Vital Signs Last Recorded V/S: Last Vital Signs Temp 36.4 C 08/29/18 07:05 Pulse 115 H 08/29/18 07:05 Resp 20 08/29/18 07:05 BP 140/102 H 08/29/18 07:05 Pulse Ox 99 08/29/18 07:05 - Orders/Labs/Meds Orders: Active Orders 24 hr Category Date Time Status EKG Documentation Completion [RC] URGENT Care 08/29/18 07:15 Active Labs: Laboratory Tests 08/29/18 08/29/18 08/29/18 Range/Units 07:27 07:27 07:27 WBC 7.9 (5.0-10.0) 10^3/uL RBC 5.26 (4.6-6.2) 10^6/uL Hgb 13.9 L D (14.0-18.0) g/dL Hct 43.8 (40.0-54.0) % MCV 83.3 (80-100) fL MCH 26.4 L (27.0-34.0) pg MCHC 31.7 L (33.0-35.0) g/dL Plt Count 263 D (150-450) 10^3/uL Neut % (Auto) 56.2 (42.2-75.2) % Lymph % (Auto) 29.4 (20.5-50.1) % Charles % (Auto) 13.2 H (2-8) % Eos % (Auto) 1.1 (1.0-3.0) % Baso % (Auto) 0.1 (0.0-1.0) % Sodium 135 (135-145) mmol/L Potassium 4.2 (3.6-5.0) mmol/L Chloride 99 L (101-111) mmol/L Carbon Dioxide 24.0 (21.0-31.0) mmol/L Anion Gap 16.2 BUN 18 (7-18) mg/dL Creatinine 1.1 (0.6-1.3) mg/dL Est Cr Clr Drug Dosing 75.14 mL/min Estimated GFR (MDRD) > 60 BUN/Creatinine Ratio 16.36 Glucose 119 H (74-105) mg/dL Calcium 9.5 D (8.4-10.2) mg/dl Total Bilirubin 1.0 (0.2-1.0) mg/dL AST 36 (10-42) IU/L ALT 23 (10-60) IU/L Alkaline Phosphatase 90 (42-121) IU/L Troponin I < 0.02 (0.00-0.02) ng/ml B-Natriuretic Peptide 777 H (0-100) pg/ml Total Protein 7.6 (6.7-8.2) g/dl Albumin 4.0 (3.2-5.5) g/dl Globulin 3.6 Albumin/Globulin Ratio 1.11 - Re-Assessments/Exams Free Text/Narrative Re-Assessment/Exam: 08/29/18 08:[address]. [address]. Momin advised to have the patient wait for the pacemaker clinic to call to do a manual download from his pacemaker to attempt to identify why the pacemaker is beeping. If the patient has any additional symptoms or further concerns, the patient should return to the emergency department for continued evaluation and further management. Departure - Departure Time of Disposition: 08:49 Disposition: Home, Self-Care 01 Condition: Fair Clinical Impression: Pacemaker complications Qualifiers: Encounter type: initial encounter Qualified Code(s): T82.9XXA - Unspecified complication of cardiac and vascular prosthetic device, implant and graft, initial encounter Forms: ED Department Discharge Care Plan Goals: The patient was advised of the examination, lab, EKG and x-ray results during the visit. This information was also discussed with Dr. Go. Momin. Dr. Momin advised to have the patient wait for the pacemaker clinic to call to do a manual download from his pacemaker to attempt to identify why the pacemaker is beeping. If the patient has any additional symptoms or further concerns, the patient should return to the emergency department for continued evaluation and further management. - My Orders Last 24 Hours: My Active Orders 08/29/18 07:15 EKG Documentation Completion [RC] URGENT - Assessment/Plan Last 24 Hours: My Active Orders 08/29/18 07:15 EKG Documentation Completion [RC] URGENT
--- NOTE | 2018-08-29 07:58 | CR ---
Clinical history: 53-year-old male complaining of "chest discomfort". Interpretation: Cardiac pacemaker...one lead appears to be pointed now more to the apex (compared to 22 October 2017). Pacing? Normal cardiac size and configuration unchanged despite poor inspiratory effort. No new cephalization of vascular flow, signs of alveolar edema or dependent pleural fluid accumulation. No new lung mass, hilar lymphadenopathy or lobar pneumonia. No pneumothorax. CONCLUSION: No acute new cardiopulmonary abnormality (see comment regarding pacemaker lead).
[2018-08-29 08:09] LABS: ANION GAP 16.2; CHLORIDE,CL 99 mmol/L (101-111); SODIUM,NA 135 mmol/L (135-145)
== END 2018-08-29 09:00 | disposition home or self-care (01) ==
LOC: DL.ED 07:03
DX: T82.9XXA Unspecified complication of cardiac and vascular prosthetic device, implant and graft, initial encounter (principal); I10 Essential (primary) hypertension; K21.9 Gastro-esophageal reflux disease without esophagitis; E78.00 Pure hypercholesterolemia, unspecified; I25.10 Atherosclerotic heart disease of native coronary artery without angina pectoris; Z95.0 Presence of cardiac pacemaker; Z79.899 Other long term (current) drug therapy; Z79.01 Long term (current) use of anticoagulants
CPT/HCPCS: 36415; 71045; 80053; 83880; 84484; 85025; 93005; 99284

== ENCOUNTER 2018-09-24 03:27 | Emergency (ER) | payer OTHER ==
[2018-09-24] MEDS ORDERED: Albuterol/Ipratropium 3.0-0.5 MG/3 ML Neb Soln NEB ONE (03:51)
[2018-09-24 04:26] LABS: ANION GAP 14.1; CHLORIDE,CL 98 mmol/L (101-111); SODIUM,NA 130 mmol/L (135-145)
[2018-09-24] MEDS ORDERED: cefTRIAXone 1 GM in Sodium Chloride 0.9% 50 ML IV ONE (05:16)
[2018-09-24] MEDS ORDERED: Acetaminophen 325 MG Tab PO ONE (05:19)
[2018-09-24] MEDS ORDERED: Sodium Chloride 0.9% 1,000 ML IV ONE (05:19)
--- NOTE | 2018-09-24 05:24 | EDM.PDOC ---
ED HPI GENERAL MEDICAL PROBLEM - General Chief Complaint: Respiratory Problem Stated Complaint: SICK AND CANT CATCH BREATH [phone] Time Seen by Provider: 09/24/18 05:20 Source of Information: Reports: Patient History Limitations: Reports: No Limitations - History of Present Illness INITIAL COMMENTS - FREE TEXT/NARRATIVE: cough x 1 week, not getting better. has appt with gold leaf printer for eval of poor pulm function Treatments GENERAL EXPEDITOR: Reports: Breathing Treatments, Other (see below) Other Treatments GENERAL EXPEDITOR: OTC cough medcation. Upper Chest Pain Score (Numeric/FACES): 4 - Related Data Allergies Allergy/AdvReac Type Severity Reaction Status Date / Time No Known Allergies Allergy Verified 09/24/18 04:09 Home Meds: Home Meds Losartan [Cozaar] 12.5 mg PO DAILY 08/14/13 [History] Metoprolol Succinate 100 mg PO DAILY 08/14/13 [History] Nitroglycerin [Nitrostat] 0.4 mg SL ASDIRECTED PRN 08/14/13 [History] Albuterol [Proventil HFA] 2 puff INH Q6H PRN 10/22/17 [History] Omeprazole Magnesium [Prilosec Otc] 20 mg PO DAILY 10/22/17 [History] Warfarin [Coumadin] 7.5 mg PO DAILY 10/22/17 [History] Acetaminophen 1,000 mg PO Q6H PRN 03/21/18 [History] Potassium Chloride 20 meq PO DAILY 03/21/18 [History] atorvaSTATin [Lipitor] 20 mg PO DAILY 03/21/18 [History] Allopurinol [Zyloprim] 300 mg PO DAILY 08/29/18 [History] Bumetanide [Bumex] 1.5 mg PO BID 08/29/18 [History] Amiodarone HCl 400 mg PO BID 09/24/18 [History] Amiodarone HCl [Pacerone] 200 mg PO DAILY 09/24/18 [History] Warfarin [Coumadin] 5 mg PO DAILY 09/24/18 [History] Past Medical History HEENT History: Reports: Impaired Vision Other HEENT History: Wears glasses Cardiovascular History: Reports: Automatic Implantable Cardioverter Defibrillators, CAD, Cardiomyopathy, High Cholesterol, Hypertension, Pacemaker Respiratory History: Reports: Other (See Below) Other Respiratory History: pulmonary nodules Gastrointestinal History: Reports: GERD Musculoskeletal History: Reports: Arthritis Endocrine/Metabolic History: Reports: Obesity/BMI 30+ - Past Surgical History Cardiovascular Surgical History: Reports: AICD, Pacer GI Surgical History: Reports: Bariatric Procedure Musculoskeletal Surgical History: Reports: Arthroscopic Knee Social & Family History - Family History Family Medical History: Noncontributory - Tobacco Use Smoking Status *Q: Never Smoker - Caffeine Use Caffeine Use: Reports: Soda - Recreational Drug Use Recreational Drug Use: No - Living Situation & Occupation Living situation: Reports: with Family Occupation: Employed ED ROS GENERAL - Review of Systems Review Of Systems: ROS reveals no pertinent complaints other than HPI. ED EXAM, GENERAL - Physical Exam Exam: See Below Exam Limited By: No Limitations General Appearance: Alert, WD/WN, Mild Distress, Other (episodic cough spasms) Ears: Hearing Grossly Normal Throat/Mouth: Normal Voice, No Airway Compromise Head: Atraumatic Neck: Non-Tender, Full Range of Motion Respiratory/Chest: No Accessory Muscle Use, Decreased Breath Sounds, Rhonchi, Wheezing Cardiovascular: Regular Rate, Rhythm GI/Abdominal: Soft, Non-Tender Neurological: Alert, Oriented, Normal Cognition, Normal Gait, No Motor/Sensory Deficits Psychiatric: Flat Affect Skin Exam: Warm, Dry, Normal Color Lymphatic: No Adenopathy Course - Vital Signs Last Recorded V/S: Last Vital Signs Temp 37.9 C 09/24/18 05:17 Pulse 104 H 09/24/18 05:17 Resp 14 09/24/18 05:17 BP 106/74 09/24/18 05:17 Pulse Ox 96 09/24/18 05:17 - Orders/Labs/Meds Orders: Active Orders 24 hr Category Date Time Status EKG 12 Lead [EKG Documentation Completion] [RC] STAT Care 09/24/18 03:53 Active RT Aerosol Therapy [RC] ASDIRECTED Care 09/24/18 03:52 Active Chest 2V [CR] Urgent Exams 09/24/18 03:55 Taken CULTURE BLOOD [BC] Stat Lab 09/24/18 03:57 Received cefTRIAXone [Rocephin] 1 gm Med 09/24/18 05:16 Active Sodium Chloride 0.9% [Normal Saline] 50 ml IV ONETIME Medication Orders Ceftriaxone Sodium 1 gm/ (Sodium Chloride) 50 mls @ 50 mls/hr IV ONETIME ONE Stop: 09/24/18 06:15 Last Admin: 09/24/18 05:22 Dose: 50 mls/hr Labs: Laboratory Tests 09/24/18 09/24/18 09/24/18 Range/Units 03:57 03:57 03:57 WBC 8.5 (5.0-10.0) 10^3/uL RBC 4.51 L (4.6-6.2) 10^6/uL Hgb 11.7 L D (14.0-18.0) g/dL Hct 36.6 L (40.0-54.0) % MCV 81.2 (80-100) fL MCH 25.9 L (27.0-34.0) pg MCHC 32.0 L (33.0-35.0) g/dL Plt Count 209 (150-450) 10^3/uL Neut % (Auto) 63.0 (42.2-75.2) % Lymph % (Auto) 23.8 (20.5-50.1) % Angelina % (Auto) 12.2 H (2-8) % Eos % (Auto) 0.8 L (1.0-3.0) % Baso % (Auto) 0.2 (0.0-1.0) % Sodium 130 L (135-145) mmol/L Potassium 3.1 L (3.6-5.0) mmol/L Chloride 98 L (101-111) mmol/L Carbon Dioxide 21.0 (21.0-31.0) mmol/L Anion Gap 14.1 BUN 18 (7-18) mg/dL Creatinine 1.1 (0.6-1.3) mg/dL Est Cr Clr Drug Dosing TNP Estimated GFR (MDRD) > 60 BUN/Creatinine Ratio 16.36 Glucose 103 (74-105) mg/dL Lactic Acid 1.0 (0.5-2.2) mmol/L Calcium 8.0 L D (8.4-10.2) mg/dl Total Bilirubin 0.8 (0.2-1.0) mg/dL AST 80 H (10-42) IU/L ALT 64 H (10-60) IU/L Alkaline Phosphatase 73 (42-121) IU/L Troponin I 0.01 (0.00-0.08) ng/mL Total Protein 7.1 (6.7-8.2) g/dl Albumin 3.6 (3.2-5.5) g/dl Globulin 3.5 Albumin/Globulin Ratio 1.03 Meds: Medications Generic Name Dose Route Start Last Admin Trade Name Stiven PRN Reason Stop Dose Admin Ceftriaxone Sodium 1 gm/ 50 mls @ 50 mls/hr 09/24/18 05:16 09/24/18 05:22 Sodium Chloride IV 09/24/18 06:15 50 mls/hr ONETIME ONE Administration Discontinued Medications Generic Name Dose Route Start Last Admin Trade Name Stvien PRN Reason Stop Dose Admin Acetaminophen 650 mg 09/24/18 05:19 09/24/18 05:25 Tylenol PO 09/24/18 05:20 650 mg NOW ONE Administration Albuterol/Ipratropium 3 ml 09/24/18 03:51 09/24/18 03:57 Duoneb 3.0-0.5 Mg/3 Ml NEB 09/24/18 03:52 3 ml ONETIME ONE Administration Sodium Chloride 1,000 mls @ 999 mls/hr 09/24/18 05:19 09/24/18 05:22 Normal Saline IV 09/24/18 06:19 Not Given .BOLUS ONE - Re-Assessments/Exams Free Text/Narrative Re-Assessment/Exam: 09/24/18 05:22 s/p duoneb = better. Departure - Departure Time of Disposition: 05:35 Disposition: Home, Self-Care 01 Condition: Good Clinical Impression: Acute bronchitis with bronchospasm - Discharge Information Instructions: Acute Bronchitis, Adult, [id number] Forms: ED Department Discharge Additional Instructions: 1) rest as much as possible 2) use neb 3 times daily for cough and wheeze 3) drink lots of liquids 4) follow up at clinic rx given; z-lili albuterol 2.5mg solution tid prn - My Orders Last 24 Hours: My Active Orders 09/24/18 03:52 RT Aerosol Therapy [RC] ASDIRECTED 09/24/18 03:53 EKG 12 Lead [EKG Documentation Completion] [RC] STAT 09/24/18 03:55 Chest 2V [CR] Urgent 09/24/18 03:57 CULTURE BLOOD [BC] Stat 09/24/18 05:16 cefTRIAXone [Rocephin] 1 gm Sodium Chloride 0.9% [Normal Saline] 50 ml IV ONETIME - Assessment/Plan Last 24 Hours: My Active Orders 09/24/18 03:52 RT Aerosol Therapy [RC] ASDIRECTED 09/24/18 03:53 EKG 12 Lead [EKG Documentation Completion] [RC] STAT 09/24/18 03:55 Chest 2V [CR] Urgent 09/24/18 03:57 CULTURE BLOOD [BC] Stat 09/24/18 05:16 cefTRIAXone [Rocephin] 1 gm Sodium Chloride 0.9% [Normal Saline] 50 ml IV ONETIME
== END 2018-09-24 05:48 | disposition home or self-care (01) ==
LOC: DL.ED 03:27
DX: J20.9 Acute bronchitis, unspecified (principal); I10 Essential (primary) hypertension; K21.9 Gastro-esophageal reflux disease without esophagitis; Z79.899 Other long term (current) drug therapy; Z95.0 Presence of cardiac pacemaker; Z79.01 Long term (current) use of anticoagulants
CPT/HCPCS: 36415; 71046; 80053; 83605; 84484; 85025; 87040; 87804; 93005; 94640; 96365; 99283; A9270; J0696; J7050; J7620-GY

== ENCOUNTER 2020-01-01 06:02 | Emergency (ER) | payer OTHER ==
[2020-01-01] MEDS ORDERED: Ondansetron 4 MG/2 ML SDV IVPUSH ONE (06:03)
--- NOTE | 2020-01-01 06:26 | EDM.PDOC ---
"<MendozaGurjit Aixa - Last Filed: 01/01/20 06:49> ED HPI GENERAL MEDICAL PROBLEM - General Chief Complaint: Gastrointestinal Problem Stated Complaint: CANT KEEP ANYTHING DOWN Time Seen by Provider: 01/01/20 06:15 Source of Information: Reports: Patient History Limitations: Reports: No Limitations - History of Present Illness INITIAL COMMENTS - FREE TEXT/NARRATIVE: This 54 yo male patient reports to the ED with nausea, vomiting and diarrhea for the past 24 hours. The patient reports he had chills all day yesterday and had a fever of 103 this morning while at home. The patient reports he took Tylenol for his fever this morning. The patient reports he has not been able to keep water down since yesterday morning. Onset Date: 12/31/19 Duration: Constant, Getting Worse Location: Reports: Abdomen Quality: Reports: Ache, Dull Severity: Moderate Improves with: Reports: None Worsens with: Reports: None Context: Reports: Other Associated Symptoms: Reports: Fever/Chills, Nausea/Vomiting, Other (diarrhea) Treatments PHOTOTYPESETTING EQUIPMENT MONITOR: Reports: Acetaminophen - Related Data Allergies Allergy/AdvReac Type Severity Reaction Status Date / Time No Known Allergies Allergy Verified 02/01/19 07:06 Home Meds: Home Meds Losartan [Cozaar] 12.5 mg PO DAILY 08/14/13 [History] Metoprolol Succinate 100 mg PO DAILY 08/14/13 [History] Nitroglycerin [Nitrostat] 0.4 mg SL ASDIRECTED PRN 08/14/13 [History] Albuterol [Proventil HFA] 2 puff INH Q6H PRN 10/22/17 [History] Omeprazole Magnesium [Prilosec Otc] 20 mg PO BID 10/22/17 [History] Warfarin [Coumadin] 7.5 mg PO DAILY 10/22/17 [History] Acetaminophen 1,000 mg PO Q6H PRN 03/21/18 [History] Potassium Chloride 20 meq PO BID 03/21/18 [History] atorvaSTATin [Lipitor] 20 mg PO DAILY 03/21/18 [History] Bumetanide [Bumex] 1.5 mg PO BID 08/29/18 [History] allopurinoL [Zyloprim] 300 mg PO DAILY 08/29/18 [History] Aspirin [Ecotrin EC] 81 mg PO DAILY 02/01/19 [History] Sour Wilder Extract [Tart Wilder Extract] 1,200 mg PO DAILY 02/01/19 [History] Past Medical History HEENT History: Reports: Impaired Vision Other HEENT History: Wears glasses Cardiovascular History: Reports: Automatic Implantable Cardioverter Defibrillators, CAD, Cardiomyopathy, High Cholesterol, Hypertension, Pacemaker Respiratory History: Reports: Other (See Below) Other Respiratory History: pulmonary nodules Gastrointestinal History: Reports: GERD Musculoskeletal History: Reports: Arthritis Endocrine/Metabolic History: Reports: Obesity/BMI 30+ - Past Surgical History Cardiovascular Surgical History: Reports: AICD, Cardiac Ablation, Pacer GI Surgical History: Reports: Bariatric Procedure Musculoskeletal Surgical History: Reports: Arthroscopic Knee Social & Family History - Family History Family Medical History: Noncontributory - Tobacco Use Smoking Status *Q: Unknown Ever Smoked - Caffeine Use Caffeine Use: Reports: None - Alcohol Use Days Per Week of Alcohol Use: 2 Number of Drinks Per Day: 2 Total Drinks Per Week: 4 - Recreational Drug Use Recreational Drug Use: No - Living Situation & Occupation Living situation: Reports: with Family Occupation: Employed ED ROS GENERAL - Review of Systems Review Of Systems: Comprehensive ROS is negative, except as noted in HPI. ED EXAM, GI/ABD - Physical Exam Exam: See Below Exam Limited By: No Limitations General Appearance: Alert, WD/WN, Moderate Distress Eyes: Bilateral: Normal Appearance, EOMI Ears: Normal External Exam, Normal Canal, Hearing Grossly Normal, Normal TMs Nose: Normal Inspection, Normal Mucosa, No Blood Throat/Mouth: Normal Inspection, Normal Lips, Normal Teeth, Normal Gums, Normal Oropharynx, Normal Voice, No Airway Compromise Head: Atraumatic, Normocephalic Neck: Normal Inspection, Supple, Non-Tender, Full Range of Motion Respiratory/Chest: No Respiratory Distress, Lungs Clear, Normal Breath Sounds, No Accessory Muscle Use, Chest Non-Tender Cardiovascular: Normal Peripheral Pulses, Regular Rate, Rhythm, No Edema, No Gallop, No JVD, No Murmur, No Rub GI/Abdominal Exam: Normal Bowel Sounds, No Organomegaly, No Distention, No Abnormal Bruit, No Mass, Pelvis Stable, Tender (diffuse) (Male) Exam: Deferred Rectal (Males) Exam: Deferred Back Exam: Normal Inspection, Full Range of Motion, NT Extremities: Normal Inspection, Normal Range of Motion, Non-Tender, Normal Capillary Refill, No Pedal Edema Neurological: Alert, Oriented, CN II-XII Intact, Normal Cognition, Normal Gait, Normal Reflexes, No Motor/Sensory Deficits Psychiatric: Normal Affect, Normal Mood Skin Exam: Warm, Dry, Intact, Normal Color, No Rash Lymphatic: No Adenopathy Departure - Departure Disposition: Home, Self-Care 01 Clinical Impression: Colitis, Acute gastroenteritis - Discharge Information Instructions: Dehydration, Adult, [id number], Colitis Forms: ED Department Discharge Additional Instructions: Rx: Zofran 4mg Drink plenty of water, Gator Aid, or Pedialyte. Clear liquid diet until nausea and vomiting resolve, then advance to soft bland diet as tolerated. Bananas, rice, and yogurt with active cultures may help with diarrhea. Follow up in clinic if not improving in 2 to 3 days. Return to ER if worse at any time. Sepsis Event Note (ED) - Evaluation Sepsis Screening Result: No Definite Risk <Farhad Shanks - Last Filed: 01/01/20 08:14> ED HPI GENERAL MEDICAL PROBLEM - General Source of Information: Reports: Patient, Old Records, RN, RN Notes Reviewed History Limitations: Reports: No Limitations - History of Present Illness INITIAL COMMENTS - FREE TEXT/NARRATIVE: I assumed care of the pt from Gurjit DEY at 0700HR shift change with CT and lab results pending. No changes to CC/HPI, Hx, ROS, or diagnostic findings as documented by the PA for this encounter. Pt reports mild generalized abdominal cramping, which is worse preceding diarrhea BMs. He denies bloody or coffee ground emesis, bloody, black/melanotic, or mucus stools. He does not think he had any bad food. No known sick contacts. Denies cough, shortness of breath, chest pain, skin rash or lesions. Onset: Gradual ED ROS GENERAL - Review of Systems Review Of Systems: Comprehensive ROS is negative, except as noted in HPI. ED EXAM, GI/ABD - Physical Exam Text/Narrative:: No change to exam as documented by the PA for this encounter. Course - Vital Signs Last Recorded V/S: Last Vital Signs Temp 98.3 F 01/01/20 06:11 Pulse 78 01/01/20 06:11 Resp 16 01/01/20 06:11 BP 123/73 01/01/20 06:11 Pulse Ox 99 01/01/20 06:11 - Orders/Labs/Meds Labs: Laboratory Tests 01/01/20 01/01/20 01/01/20 Range/Units 06:16 06:16 06:16 WBC 14.8 H (5.0-10.0) 10^3/uL RBC 5.42 (4.6-6.2) 10^6/uL Hgb 15.8 D (14.0-18.0) g/dL Hct 47.9 (40.0-54.0) % MCV 88.4 (80-100) fL MCH 29.2 (27.0-34.0) pg MCHC 33.0 (33.0-35.0) g/dL Plt Count 247 (150-450) 10^3/uL Neut % (Auto) 73.0 (42.2-75.2) % Lymph % (Auto) 17.9 L (20.5-50.1) % [place] % (Auto) 8.9 H (2-8) % Eos % (Auto) 0.1 L (1.0-3.0) % Baso % (Auto) 0.1 (0.0-1.0) % PT 19.4 H (9.0-12.0) SEC INR 2.1 H (0.9-1.2) Sodium 134 L (136-145) mmol/L Potassium 3.3 L (3.5-5.1) mmol/L Chloride 97 L (98-107) mmol/L Carbon Dioxide 26 (21-32) mmol/L Anion Gap 14.3 H (7-13) mEq/L BUN 15 (7-18) mg/dL Creatinine 1.46 H (0.70-1.30) mg/dL Est Cr Clr Drug Dosing TNP Estimated GFR (MDRD) 50 BUN/Creatinine Ratio 10.3 (No establ ref range) Glucose 120 H (74-99) mg/dL Calcium 9.4 (8.5-10.1) mg/dL Total Bilirubin 1.5 H (0.2-1.0) mg/dL AST 26 (15-37) U/L ALT 36 (16-63) U/L Alkaline Phosphatase 124 H (46-116) U/L C-Reactive Protein (0.0-0.9) mg/dL B-Natriuretic Peptide (0-100) pg/ml Total Protein 8.0 (6.4-8.2) g/dL Albumin 3.7 (3.4-5.0) g/dL Globulin 4.3 Albumin/Globulin Ratio 0.9 Amylase 40 (25-115) U/L Lipase 174 (73-393) U/L SARS-CoV-2 RNA (RT-PCR) (NEGATIVE) 01/01/20 01/01/20 01/01/20 Range/Units 06:16 06:16 06:38 WBC (5.0-10.0) 10^3/uL RBC (4.6-6.2) 10^6/uL Hgb (14.0-18.0) g/dL Hct (40.0-54.0) % MCV (80-100) fL MCH (27.0-34.0) pg MCHC (33.0-35.0) g/dL Plt Count (150-450) 10^3/uL Neut % (Auto) (42.2-75.2) % Lymph % (Auto) (20.5-50.1) % [place] % (Auto) (2-8) % Eos % (Auto) (1.0-3.0) % Baso % (Auto) (0.0-1.0) % PT (9.0-12.0) SEC INR (0.9-1.2) Sodium (136-145) mmol/L Potassium (3.5-5.1) mmol/L Chloride (98-107) mmol/L Carbon Dioxide (21-32) mmol/L Anion Gap (7-13) mEq/L BUN (7-18) mg/dL Creatinine (0.70-1.30) mg/dL Est Cr Clr Drug Dosing Estimated GFR (MDRD) BUN/Creatinine Ratio (No establ ref range) Glucose (74-99) mg/dL Calcium (8.5-10.1) mg/dL Total Bilirubin (0.2-1.0) mg/dL AST (15-37) U/L ALT (16-63) U/L Alkaline Phosphatase (46-116) U/L C-Reactive Protein 11.4 H (0.0-0.9) mg/dL B-Natriuretic Peptide 269 H (0-100) pg/ml Total Protein (6.4-8.2) g/dL Albumin (3.4-5.0) g/dL Globulin Albumin/Globulin Ratio Amylase (25-115) U/L Lipase (73-393) U/L SARS-CoV-2 RNA (RT-PCR) Negative (NEGATIVE) Meds: Medications Discontinued Medications Generic Name Dose Route Start Last Admin Trade Name Freq PRN Reason Stop Dose Admin Sodium Chloride 1,000 mls @ 999 mls/hr 01/01/20 07:03 01/01/20 07:13 Normal Saline IV 01/01/20 08:03 999 mls/hr .BOLUS ONE Administration Iopamidol 100 ml 01/01/20 06:44 Isovue-300 (61%) IVPUSH 01/01/20 06:45 ONETIME ONE Ondansetron HCl 4 mg 01/01/20 06:03 01/01/20 06:22 Zofran IVPUSH 01/01/20 06:04 4 mg ONETIME ONE Administration Ondansetron HCl 4 mg 01/01/20 07:41 01/01/20 07:50 Zofran IV 01/01/20 07:42 4 mg ONETIME ONE Administration - Radiology Interpretation Free Text/Narrative:: [facility] Final Radiology Report Call: [phone] assistance Online chat: [email or web address] Name: JOSE RAMON SORIANO Age: 54Years M Date: 01/01/2020 SSN: -- : [id number] Study: CT ABDOMEN PELVIS W CONT Requesting Physician: Gurjit Mendoza Images: [id number] Addl Studies: Provided Clinical History: Diffuse abdominal pain (WBC - 14.6) Hx pancreatitis, (no elevation of Amylase or Lipase) N/V diarrhea x's 24 hrs. Contrast: With Contrast Medium: Isovue Contrast Amount: 75 mL Contrast Method: Intravenous (IV) Page 1 of 2 PROCEDURE INFORMATION: Exam: CT Abdomen And Pelvis With Contrast Exam date and time: 01/01/2020 7:07 AM Age: 54 years old Clinical indication: Abdominal pain; Generalized; Prior surgery; Surgery date: 6+ months; Surgery type: Stomach; Additional info: Diffuse abdominal pain (wbc - 14.6) HX pancreatitis, (no elevation of amylase or lipase) n/v diarrhea x's 24 hrs. TECHNIQUE: Imaging protocol: Computed tomography of the abdomen and pelvis with intravenous contrast. Radiation optimization: All CT scans at this facility use at least one of these dose optimization techniques: automated exposure control; mA and/or kV adjustment per patient size (includes targeted exams where dose is matched to clinical indication); or iterative reconstruction. Contrast material: ISOVUE; Contrast volume: 75 ml; Contrast route: INTRAVENOUS (IV); COMPARISON: CT Abdomen w Cont 03/29/2018 2:26 PM FINDINGS: Tubes, catheters and devices: Pacemaker leads in the right cardiac chambers. Lungs: Atelectasis or scarring bilateral lower lobes lingula. Stable pulmonary nodules the right lower and middle lobes measuring to 7 mm. Liver: Mild hepatomegaly. Gallbladder and bile ducts: Status post cholecystectomy. Pancreas: Normal. No ductal dilation. Spleen: Normal. No splenomegaly. Adrenals: Normal. No mass. Kidneys and ureters: Normal. No hydronephrosis. JOSE RAMON SORIANO | Final Radiology Report CONFIDENTIALITY STATEMENT This report is intended only for use by the referring physician, and only in accordance with law. If you received this in error, call [phone]. Page 2 of 2 Stomach and bowel: Status post Sandra-en-Y gastric bypass. Bowel wall thickening involving the entire colon slightly more pronounced on right. Suspect colitis. Appendix: No evidence of appendicitis. Intraperitoneal space: Multiple surgical clips in the left upper quadrant. Vasculature: Atherosclerotic disease of the abdominal aorta. 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 Lymph nodes: Unremarkable. No enlarged lymph nodes. Bladder: Unremarkable as visualized. Reproductive: Unremarkable as visualized. Bones/joints: Severe multilevel degenerative disease facet hypertrophy of the lumbar spine. Stenosis of the spinal canal and neural foramina at levels. Left scarring. Soft tissues: Unremarkable. IMPRESSION: Bowel wall thickening involving the entire colon slightly more pronounced on right. Suspect colitis. Atherosclerotic disease of the abdominal aorta. 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 Thank you for allowing us to participate in the care of your patient. Dictated and Authenticated by: Carlin Anguiano MD 01/01/2020 7:31 AM Central Time ([place] & [place]) Departure - Departure Time of Disposition: 08:30 Condition: Good - Discharge Information *PRESCRIPTION DRUG MONITORING PROGRAM REVIEWED*: Not Applicable *COPY OF PRESCRIPTION DRUG MONITORING REPORT IN PATIENT WENDIE: Not Applicable Sepsis Event Note (ED) - Focused Exam Vital Signs: Vital Signs Temp Pulse Resp BP Pulse Ox 01/01/20 06:11 98.3 F 78 16 123/73 99"
[2020-01-01 06:40] LABS: ANION GAP 14.3 mEq/L (7-13); CHLORIDE,CL 97 mmol/L (98-107); SODIUM,NA 134 mmol/L (136-145)
[2020-01-01] MEDS ORDERED: Iopamidol 612 MG/ML 100 ML Bottle IVPUSH ONE (06:44)
[2020-01-01] MEDS ORDERED: Sodium Chloride 0.9% 1,000 ML IV ONE (07:03)
--- NOTE | 2020-01-01 07:31 | CT ---
PROCEDURE INFORMATION: Exam: CT Abdomen And Pelvis With Contrast Exam date and time: 01/01/2020 7:07 AM Age: 54 years old Clinical indication: Abdominal pain; Generalized; Prior surgery; Surgery date: 6+ months; Surgery type: Stomach; Additional info: Diffuse abdominal pain (wbc - 14.6) HX pancreatitis, (no elevation of amylase or lipase) n/v diarrhea x's 24 hrs. TECHNIQUE: Imaging protocol: Computed tomography of the abdomen and pelvis with intravenous contrast. Radiation optimization: All CT scans at this facility use at least one of these dose optimization techniques: automated exposure control; mA and/or kV adjustment per patient size (includes targeted exams where dose is matched to clinical indication); or iterative reconstruction. Contrast material: ISOVUE; Contrast volume: 75 ml; Contrast route: INTRAVENOUS (IV); COMPARISON: CT Abdomen w Cont 03/29/2018 2:26 PM FINDINGS: Tubes, catheters and devices: Pacemaker leads in the right cardiac chambers. Lungs: Atelectasis or scarring bilateral lower lobes lingula. Stable pulmonary nodules the right lower and middle lobes measuring to 7 mm. Liver: Mild hepatomegaly. Gallbladder and bile ducts: Status post cholecystectomy. Pancreas: Normal. No ductal dilation. Spleen: Normal. No splenomegaly. Adrenals: Normal. No mass. Kidneys and ureters: Normal. No hydronephrosis. Stomach and bowel: Status post Sandra-en-Y gastric bypass. Bowel wall thickening involving the entire colon slightly more pronounced on right. Suspect colitis. Appendix: No evidence of appendicitis. Intraperitoneal space: Multiple surgical clips in the left upper quadrant. Vasculature: Atherosclerotic disease of the abdominal aorta. 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 Lymph nodes: Unremarkable. No enlarged lymph nodes. Bladder: Unremarkable as visualized. Reproductive: Unremarkable as visualized. Bones/joints: Severe multilevel degenerative disease facet hypertrophy of the lumbar spine. Stenosis of the spinal canal and neural foramina at levels. Left scarring. Soft tissues: Unremarkable. IMPRESSION: Bowel wall thickening involving the entire colon slightly more pronounced on right. Suspect colitis. Atherosclerotic disease of the abdominal aorta. 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
[2020-01-01] MEDS ORDERED: Ondansetron 4 MG/2 ML SDV IV ONE (07:41)
== END 2020-01-01 08:50 | disposition home or self-care (01) ==
LOC: DL.ED 06:02
DX: K52.9 Noninfective gastroenteritis and colitis, unspecified (principal); Z20.828 Contact with and (suspected) exposure to other viral communicable diseases; I25.10 Atherosclerotic heart disease of native coronary artery without angina pectoris; I10 Essential (primary) hypertension; K21.9 Gastro-esophageal reflux disease without esophagitis; M19.90 Unspecified osteoarthritis, unspecified site; E66.9 Obesity, unspecified; Z68.32 Body mass index [BMI] 32.0-32.9, adult; Z79.82 Long term (current) use of aspirin; Z79.01 Long term (current) use of anticoagulants; Z79.899 Other long term (current) drug therapy
CPT/HCPCS: 36415; 74177; 80053; 82150; 83690; 83880; 85025; 85610; 86140; 87045; 87046; 87077; 87493; 87635; 87899; 96361; 96374; 96376; 99284; J2405; J7030; 87015; 87206; U0002

== ENCOUNTER 2023-01-16 14:04 | Emergency (ER) | payer OTHER ==
[2023-01-16 15:22] LABS: HEMATOCRIT 47.5 % (40.0-54.0); HEMOGLOBIN 16.3 g/dL (14.0-18.0); MEAN CORPUSCULAR HEMOGLOBIN 31.2 pg (27.0-34.0); MEAN CORPUSCULAR HGB CONC 34.3 g/dL (33.0-35.0); MEAN CORPUSCULAR VOLUME 90.8 fL (80-100); PLATELET COUNT,PLT 188 10^3/uL (150-450); RED BLOOD CELL COUNT 5.23 10^6/uL (4.6-6.2); WHITE BLOOD CELL COUNT,WBC 7.3 10^3/uL (5.0-10.0)
[2023-01-16 15:26] LABS: BASOPHILS PERCENT AUTO 0.1 % (0.0-1.0); EOSINOPHILS PERCENT AUTO 0.4 % (1.0-3.0); LYMPHOCYTES PERCENT AUTO 29.2 % (20.5-50.1); MONOCYTES PERCENT AUTO 25.3 % (2-8)
[2023-01-16 15:41] LABS: BAND PERCENT MAN 14 %; EOSINOPHILS PERCENT MAN 1 % (1-3); LYMPHOCYTES PERCENT MAN 29 % (20-50); MONOCYTES PERCENT MAN 20 % (2-8); SEG NEUTROPHILS PERCENT MAN 36 % (42-75)
[2023-01-16] MEDS: Sodium Chloride 0.9% 1,000 ML IV ONE ×2 (15:41→16:59)
[2023-01-16] MEDS: Sodium Chloride 0.9% 10 ML Syringe FLUSH PRN (15:42)
[2023-01-16 15:46] LABS: LACTIC ACID 1.5 mmol/L (0.4-2.0)
[2023-01-16 15:49] LABS: A/G RATIO 0.8; ALANINE AMINOTRANSFERASE,ALT 31 U/L (16-63); ALBUMIN 3.4 g/dL (3.4-5.0); ALKALINE PHOSPHATASE 96 U/L (46-116); ANION GAP 15.1 mEq/L (7-13); ASPARTATE AMNIOTRANSFERASE,AST 24 U/L (15-37); BILIRUBIN TOTAL 0.9 mg/dL (0.2-1.0); BLOOD UREA NITROGEN,BUN 14 mg/dL (7-18); BUN/CREATININE RATIO 9.7 (No establ ref range); CALCIUM 9.9 mg/dL (8.5-10.1); CARBON DIOXIDE,CO2 25 mmol/L (21-32); CHLORIDE,CL 99 mmol/L (98-107); CREATININE 1.45 mg/dL (0.70-1.30); EST CRCL DRUG DOSING (CG) 54.38 mL/min; GLUCOSE RANDOM 130 mg/dL (70-99); MAGNESIUM 1.9 mg/dL (1.8-2.4); POTASSIUM,K 3.1 mmol/L (3.5-5.1); PROTEIN TOTAL,TP 7.5 g/dL (6.4-8.2); SODIUM,NA 136 mmol/L (136-145)
[2023-01-16 16:18] LABS: APPEARANCE,URINE CLEAR (CLEAR); BILIRUBIN,URINE SMALL (NEGATIVE); COLOR,URINE DARK YELLOW (YELLOW); GLUCOSE,URINE NEGATIVE (NEGATIVE); KETONES,URINE NEGATIVE (NEGATIVE); LEUKOCYTE ESTERASE,URINE NEGATIVE (NEGATIVE); NITRITE,URINE NEGATIVE (NEGATIVE); OCCULT BLOOD,URINE TRACE-INTACT (NEGATIVE); PROTEIN,URINE 100 (NEGATIVE); UROBILINOGEN,URINE 0.2 mg/dL (0.2-1.0)
[2023-01-16 16:19] LABS: C-REACTIVE PROTEIN 18.1 mg/dL (0.0-0.9); ESTIMATED GFR 56 mL/min (>=60); ETHANOL BLOOD MEDICAL < 3 mg/dL (0)
[2023-01-16 16:23] LABS: AMPHETAMINES,URINE NEGATIVE (NEGATIVE); BARBITURATES,URINE NEGATIVE (NEGATIVE); BENZODIAZEPINE,URINE NEGATIVE (NEGATIVE); MDMA (ECSTASY), URINE NEGATIVE (NEGATIVE); METHADONE,URINE NEGATIVE (NEGATIVE); METHAMPHETAMINES,URINE NEGATIVE (NEGATIVE); OPIATES,URINE NEGATIVE (NEGATIVE); OXYCODONE,URINE NEGATIVE (NEGATIVE); PHENCYCLIDINE,URINE NEGATIVE (NEGATIVE); TCA,URINE NEGATIVE (NEGATIVE)
[2023-01-16 16:28] LABS: EPITHELIAL CELLS,URINE RARE /HPF (NOT SEEN); RBC,URINE 0-5 /HPF (0-5); WBC,URINE NOT SEEN /HPF (0-5/HPF)
[2023-01-16 16:29] LABS: BACTERIA,URINE FEW /HPF (0-FEW/HPF); HYALINE CASTS,URINE FEW; MUCUS,URINE FEW /LPF (NOT SEEN)
[2023-01-16] MEDS: Iopamidol 612 MG/ML 100 ML Bottle IVPUSH ONE (16:36)
[2023-01-16] MEDS: Potassium Chloride 20 MEQ in Premix Bag 1 BAG IV ONE (17:03)
== END 2023-01-16 18:51 | disposition home or self-care (01) ==
LOC: DL.ED 14:04
DX: E87.6 Hypokalemia (principal); E86.0 Dehydration; K52.9 Noninfective gastroenteritis and colitis, unspecified; I72.3 Aneurysm of iliac artery; R91.1 Solitary pulmonary nodule; R19.7 Diarrhea, unspecified; I10 Essential (primary) hypertension; K21.9 Gastro-esophageal reflux disease without esophagitis; Z88.8 Allergy status to other drugs, medicaments and biological substances; E66.9 Obesity, unspecified; Z95.0 Presence of cardiac pacemaker
CPT/HCPCS: 36415; 74177; 80053; 80305-QW; 80307; 81001; 83605; 83735; 85025; 86140; 87045; 87046; 87077; 87328; 87329; 87493; 87899; 96361; 96365; 99283; 99284-25; J3480; J3490; J7030; Q9967

== ENCOUNTER 2023-10-12 13:43 | Emergency (ER) | payer OTHER ==
[2023-10-12 14:01] LABS: BASOPHILS PERCENT AUTO 0.2 % (0.0-1.0); EOSINOPHILS PERCENT AUTO 1.6 % (1.0-3.0); HEMATOCRIT 44.4 % (40.0-54.0); HEMOGLOBIN 14.9 g/dL (14.0-18.0); LYMPHOCYTES PERCENT AUTO 31.2 % (20.5-50.1); MEAN CORPUSCULAR HEMOGLOBIN 30.2 pg (27.0-34.0); MEAN CORPUSCULAR HGB CONC 33.6 g/dL (33.0-35.0); MEAN CORPUSCULAR VOLUME 90.1 fL (80-100); PLATELET COUNT,PLT 261 10^3/uL (150-450); RED BLOOD CELL COUNT 4.93 10^6/uL (4.6-6.2); WHITE BLOOD CELL COUNT,WBC 8.7 10^3/uL (5.0-10.0)
[2023-10-12] MEDS: Sodium Chloride 0.9% 10 ML Syringe FLUSH PRN (14:05)
[2023-10-12] MEDS: Aspirin 81 MG Tab.Chew PO ONE (14:12)
[2023-10-12 14:20] LABS: INR 2.7 (0.9-1.2); PROTHROMBIN TIME 26.4 SEC (9.0-12.0)
[2023-10-12 14:26] LABS: ALBUMIN 3.7 g/dL (3.4-5.0); ANION GAP 14.8 mEq/L (7-13); BILIRUBIN TOTAL 0.6 mg/dL (0.2-1.0); BUN/CREATININE RATIO 14.8 (No establ ref range); CALCIUM 10.2 mg/dL (8.5-10.1); CREATININE 1.08 mg/dL (0.70-1.30); EST CRCL DRUG DOSING (CG) 72.13 mL/min; POTASSIUM,K 3.8 mmol/L (3.5-5.1); PROTEIN TOTAL,TP 7.5 g/dL (6.4-8.2)
== END 2023-10-12 15:52 | disposition home or self-care (01) ==
LOC: DL.ED 13:43
DX: R07.89 Other chest pain (principal); I11.0 Hypertensive heart disease with heart failure; I50.9 Heart failure, unspecified; I25.2 Old myocardial infarction; E78.00 Pure hypercholesterolemia, unspecified; K21.9 Gastro-esophageal reflux disease without esophagitis; I25.10 Atherosclerotic heart disease of native coronary artery without angina pectoris; E66.9 Obesity, unspecified; M19.90 Unspecified osteoarthritis, unspecified site; Z88.8 Allergy status to other drugs, medicaments and biological substances; Z79.899 Other long term (current) drug therapy; Z79.82 Long term (current) use of aspirin; Z79.01 Long term (current) use of anticoagulants; Z86.16 Personal history of COVID-19; Z95.0 Presence of cardiac pacemaker
CPT/HCPCS: 36415; 71045; 80053; 83690; 83880; 84484; 85025; 85610; 85730; 93005; 93010; 99284; 99285; A9270; J3490